=== PATIENT | female | born 1985 | race African-American/Black ===

== ENCOUNTER 2016-06-07 22:45 | Emergency (ER) | payer OTHER ==
[~2016-06-07] VITALS: Ht 165.1 cm; Wt 79.4 kg
[~2016-06-07 22:45] MED LIST: CIPROFLOXACIN500 M2 ORAL; IBUPROFEN600 MG ORAL; NAPROSYN500 M1 ORAL; NKM; NORCO 5-325 TA1 EACH ORAL; PREDNISONE20 MG ORAL; TYLENOL EXTRA500 MG ORAL
[2016-06-07 23:06] VITALS: BP 127/76
[2016-06-08] VITALS: BP 122/73
[2016-06-08] MEDS ORDERED: ACYCLOVIR400 MG ORAL (00:11)
[2016-06-08 00:19] LABS: APPEARANCE,URINE CLEAR; KETONES,URINE NEGATIVE (NEGATIVE); LEUKOCYTE ESTERASE ,URINE 1+ (NEGATIVE); NITRITE,URINE NEGATIVE (NEGATIVE); PH,URINE 5 (4.5-8.0); PROTEIN,URINE 2+ (NEGATIVE); UROBILINOGEN,URINE NORMAL MG/DL (0.0-1.0)
[2016-06-08 00:25] VITALS: BP 122/73
[2016-06-08 00:35] LABS: BACTERIA,URINE FEW /HPF; SQUAMOUS EPITHELIAL CELL,UR MANY /LPF (NONE/OCC)
[2016-06-08 00:36] LABS: MUCUS,URINE MANY /LPF (NONE/OCC)
--- NOTE | 2016-06-08 06:48 | Emergency Room Report ---
History of Present Illness General Chief Complaint: Female Urogenital Problems Source: Patient Present Illness HPI Patient is a 30-year-old female who presented after increased of swelling to her lower vulvar area. Patient gradual onset of symptoms or the past few days. Patient stated that she had some increased itching. Patient denied any fever. She denied any vomiting or diarrhea or severe pain. Allergies: Coded Allergies: CITRIC ACID (Unverified Allergy, Unknown, 10/21/14) Patient History Past Medical History: see triage record Now: No Reviewed Nursing Documentation: PMH: Agreed, PSxH: Agreed Nursing Documentation-PMH Past Medical History: No Stated History Review of Systems All Other Systems: negative except mentioned in HPI Physical Exam Vital Signs Date Time Temp Pulse Resp B/P Pulse Ox O2 Delivery O2 Flow Rate FiO2 06/07/16 22:53 98.1 98 15 123/73 98 Room Air General Appearance: well appearing, no apparent distress, alert, GCS 15, non- toxic Head: normocephalic, atraumatic ENT: hearing grossly normal, normal voice Neck: full range of motion, supple Respiratory: no respiratory distress, speaking full sentences Cardiovascular #1: normal inspection, normal peripheral pulses, regular rate, rhythm, no edema Gastrointestinal: normal inspection, non tender Genitourinary: other - vesicles to left side of vulva Musculoskeletal: no calf tenderness Neurologic: normal inspection, alert, oriented x3, responsive, normal gait Psychiatric: mood/affect normal Skin: no rash Medical Decision Making Diagnostic Impression: Primary Impression: Herpes genitalis ER Course Patient presented for general rash. Differential diagnosis included was not limited to folliculitis, herpes, contact dermatitis, among others. Patient's benign exam and does not appear to require any further imaging or laboratory testing at this time. Patient was noted to have negative test. Urinalysis showed no definite infection. The patient is given prescription for acyclovir. The patient is advised to follow up with primary care doctor in 1- 2 days. Patient is advised to return if any worsening condition or if any changes in status that are concerning. Patient is advised that she would need further STD testing. Last Vital Signs Date Time Temp Pulse Resp B/P Pulse Ox O2 Delivery O2 Flow Rate FiO2 06/08/16 00:25 97.9 82 18 122/73 99 Room Air Status: improved Disposition: HOME, SELF-CARE Condition: Stable Scripts Acyclovir* (ACYCLOVIR*) 400 Mg Tablet 400 MG ORAL FIVE TIMES A DAY, #35 TAB Prov: Braxton Siu 06/08/16 Referrals: [facility] (PCP) Patient Instructions: Genital Herpes Braxton Siu Jun 08, 2016 06:48
== END 2016-06-08 00:25 | disposition home or self-care (01) ==
LOC: EMR 23:30
DX: A60.00 Herpesviral infection of urogenital system, unspecified (principal)
CPT/HCPCS: 81003; 81025; 99283

== ENCOUNTER 2016-07-15 03:27 | Emergency (ER) | payer OTHER ==
[~2016-07-15] VITALS: Ht 165.1 cm; Wt 79.4 kg
[~2016-07-15 03:27] MED LIST changes: +ACYCLOVIR400 MG ORAL
[2016-07-15 03:44] VITALS: BP 116/68
[2016-07-15] MEDS ORDERED: Ketorolac 60mg Inj IM ONE (04:00)
--- NOTE | 2016-07-15 04:15 | Emergency Room Report ---
History of Present Illness General Chief Complaint: Pain Source: Patient Present Illness HPI Is a 30-year-old female with no significant past medical history. She presents with chief complaint of lower back pain and is been ongoing problem for couple months now. Pain radiates to her groin and to the inner thigh. Sometime her foot get numb. She went to her doctor and then to [facility]. They did an ultrasound said that she has a small left ovarian cyst. She denies any fever chills denies any nausea vomiting. She was given [place] and Motrin. She is out of her pain medication now. Pain is 10 out of 10. No trauma. No incontinence of bowel or urine. No numbness. Allergies: Coded Allergies: CITRIC ACID (Unverified Allergy, Unknown, 10/21/14) Patient History Past Medical History: see triage record, old chart reviewed Past Surgical History: other Pertinent Family History: none Social History: Denies: smoking Last Menstrual Period: 06/29/16 Now: No Immunizations: other Reviewed Nursing Documentation: PMH: Agreed, PSxH: Agreed Nursing Documentation-PM Past Medical History: No Stated History Review of Systems Eye: Denies: blurred vision, eye pain ENT: Denies: ear pain, nose congestion, throat swelling Respiratory: Denies: cough, shortness of breath Cardiovascular: Denies: chest pain, palpitations Gastrointestinal: Denies: abdominal pain, diarrhea, nausea, vomiting Musculoskeletal: Reports: back pain, Denies: joint pain Skin: Denies: rash Neurological: Denies: headache, numbness Endocrine: Denies: increased thirst, increased urine Hematologic/Lymphatic: Denies: easy bruising All Other Systems: negative except mentioned in HPI Physical Exam Vital Signs Date Time Temp Pulse Resp B/P Pulse Ox O2 Delivery O2 Flow Rate FiO2 07/15/16 03:33 98.2 103 19 116/68 100 Room Air vitals normal Sp02 EP Interpretation: reviewed, normal General Appearance: well appearing, no apparent distress, alert Head: normocephalic, atraumatic Eyes: bilateral eye EOMI, bilateral eye PERRL ENT: hearing grossly normal, normal pharynx Neck: full range of motion, supple, no meningismus Respiratory: chest non-tender, lungs clear, normal breath sounds Cardiovascular #1: regular rate, rhythm, no murmur Gastrointestinal: normal bowel sounds, non tender, no mass, no organomegaly, no bruit, non-distended Musculoskeletal: back normal, gait/station normal, normal range of motion, tender - Left paraspinous tenderness along the mid lumbar area. No midline step -off. No anesthesia. Neurologic: alert, oriented x3 Psychiatric: mood/affect normal Skin: warm/dry Medical Decision Making Diagnostic Impression: Primary Impression: Back pain Qualified Codes: M54.5 - Low back pain ER Course She presents with acute exacerbation of chronic back pain. Most likely stenosis versus herniated disc. CT is unremarkable. No evidence of cauda equina syndrome, spinal epidural abscess or neoplastic process. She may benefit from physical therapy and/or MRI. This can be done as an outpatient. CT/MRI/US Diagnostic Results CT/MRI/US Diagnostic Results : Imaging Test Ordered: CT lumbar spine Impression CT scan of the lumbar spine. Read by radiologist. No acute process. Last Vital Signs Date Time Temp Pulse Resp B/P Pulse Ox O2 Delivery O2 Flow Rate FiO2 07/15/16 03:44 98.2 103 19 116/68 100 Room Air Status: improved Disposition: HOME, SELF-CARE Condition: Stable Scripts Ibuprofen* (MOTRIN*) 600 Mg Tablet 600 MG ORAL THREE TIMES A DAY, #30 TAB 0 Refills Prov: TIFFANIE GARCÍA M.D. 07/15/16 Hydrocodone/Acetaminophen 5-325* (HYDROCODONE/ACETAMINOPHEN 5-325*) 1 Each Tablet 1 TAB ORAL Q6H Y for For Pain, #30 TAB 0 Refills Prov: TIFFANIE GARCÍA M.D. 07/15/16 Referrals: [facility]ERR[facility] (PCP) Additional Instructions: Followup with your 7 days. Return if symptom worsen. If symptoms don't improve after cinnamon that time, who may need an MRI. Your doctor can order this as an outpatient. TIFFANIE GARCÍA M.D. July 15, 2016 04:15
[2016-07-15] MEDS ORDERED: IBUPROFEN600 MG ORAL (05:21)
[2016-07-15] MEDS ORDERED: HYDROCODON-ACE1 EA15 ORAL (05:21)
[2016-07-15 05:44] VITALS: BP 127/62
[2016-07-15] MEDS ORDERED: Norco 5mg/325mg tab ONE (05:58)
[2016-07-15] MEDS ORDERED: Norco 5mg/325mg tab ORAL ONE (06:00)
[2016-07-15 06:17] VITALS: BP 127/62
--- NOTE | 2016-07-15 10:12 | Diagnostic Imaging Report ---
Indication: Back pain Technique: CT lumbar was performed utilizing automated exposure control without intravenous contrast material. Axial and coronal images were generated. CT dose: Total DLP 660 mGycm; CTDI vol 18.9 mGy Comparison: CT abdomen and pelvis 03/11/14 Findings: There is no acute fracture. Lumbar alignment is within normal limits. Bone mineralization is normal. The paravertebral soft tissues are unremarkable. There is a minimal disc bulge at L5/S1 without obvious central canal stenosis. Mild bilateral neuroforaminal narrowing is noted at L5/S1. There is a sclerotic focus of the left posterior iliac unchanged from the prior study. Colonic diverticula are present. Impression: No acute osseous abnormality. MRI may be obtained for more sensitive evaluation as indicated. Findings as above. The CT scanner at [facility] is accredited by the [employer] and the scans are performed using protocols designed to limit radiation exposure to as low as reasonably achievable to attain images of sufficient resolution adequate for diagnostic evaluation.
== END 2016-07-15 06:18 | disposition home or self-care (01) ==
LOC: EMR 03:52
DX: M54.5 Low back pain (principal)
CPT/HCPCS: 72131; 81025; 96372; 99284

== ENCOUNTER 2016-08-04 19:50 | Emergency (ER) | payer OTHER ==
[~2016-08-04 19:50] MED LIST changes: +HYDROCODON-ACE1 EA15 ORAL
== END 2016-08-04 20:25 | disposition left against medical advice (07) ==
LOC: EMR 20:25
DX: Z53.21 Procedure and treatment not carried out due to patient leaving prior to being seen by health care provider (principal)